=== PATIENT | male | born 2000 | race Caucasian/White ===

== ENCOUNTER 2025-09-10 19:29 | Emergency (ER) | payer OTHER ==
[~2025-09-10] VITALS: Ht 185.4 cm; Wt 100.0 kg
[2025-09-10 19:38] VITALS: O2SAT 98
[2025-09-10 20:22] LABS: BASOPHILS % 0.1 % (0.0-2.0); EOSINOPHILS % 0.4 % (0.0-5.0); HEMATOCRIT. 39.9 % (42.0-52.0); HEMOGLOBIN. 13.0 g/dL (14.0-18.0); LYMPHOCYTES % 16.5 % (20.0-50.0); MEAN PLATELET VOLUME 8.1 fl (7.4-10.4); MONOCYTES % 5.6 % (2.0-8.0); NEUTROPHILS % 77.4 % (40.0-76.0); PLATELET 260 x1000/uL (130-400); RED BLOOD CELL COUNT 5.23 mill/uL (4.7-6.1); RED CELL DISTRIBUTION WIDTH 15.5 % (11.6-14.6)
[2025-09-10 20:37] LABS: CREATININE 1.0 mg/dL (0.6-1.3)
[2025-09-10 20:38] LABS: ETHANOL BLOOD < 10 mg/dL (<10); UREA NITROGEN BLOOD 16 mg/dL (9-23)
[2025-09-10 20:39] LABS: ASPARTATE AMINOTRANSFERASE 25 IU/L (<34)
[2025-09-10 20:40] LABS: BILIRUBIN DIRECT 0.4 mg/dL (<=3.0); BILIRUBIN TOTAL 1.4 mg/dL (0.1-1.0); PROTEIN TOTAL 7.2 g/dL (6.0-8.3)
[2025-09-10] MEDS: SODIUM CHLORIDE 0.9% 1,000 ML IV ONE (20:54)
[2025-09-10 21:16] LABS: INR 1.1
[2025-09-10] MEDS ORDERED: IBUP-1455 MT (23:07)
[2025-09-10] MEDS ORDERED: CYCL10TA21 MT (23:07)
[2025-09-10] MEDS ORDERED: LIDO700A30 TP (23:08)
[2025-09-10 23:30] VITALS: BP 144/82; PULSE 80; RESP 16; TEMP 36.9; O2SAT 98
== END 2025-09-10 23:30 | disposition home or self-care (01) ==
LOC: ER 19:29
DX: S80.211A Abrasion, right knee, initial encounter (principal); S80.212A Abrasion, left knee, initial encounter; R03.0 Elevated blood-pressure reading, without diagnosis of hypertension; Z79.01 Long term (current) use of anticoagulants; V29.99XA Rider (driver) (passenger) of other motorcycle injured in unspecified traffic accident, initial encounter; Y93.89 Activity, other specified; Y92.89 Other specified places as the place of occurrence of the external cause; Y99.8 Other external cause status
CPT/HCPCS: 80076; 80048; 80320; 83690; 85025; 85610; 85730; 36415; 73562; 70450; 71270; 72125; 74178; 96360; 96361; 99285; Q9967; J7030; G0480